=== PATIENT | male | born 1945 | race Caucasian/White ===

== ENCOUNTER 2018-07-15 10:13 | Day surgery (SDC) | payer MEDICARE, BC ==
[2018-07-15] MEDS ORDERED: PROPOFOL 10 MG/ML VIAL IV ONE (10:14)
[2018-07-15] MEDS ORDERED: LIDOCAINE 2% MDV (20MG/ML) 20ML VIAL IV ONE (10:14)
[2018-07-15 11:07] LABS: BASO % 0.3 % (0-6); EOS % 1.9 % (0-6); GRAN % 63.7 % (47-80); HEMATOCRIT 48.7 % (42.0-52.0); HEMOGLOBIN 16.5 gm/dl (14.0-18.0); LYMPH % 25.4 % (16-45); MEAN CELL VOLUME 95.3 fl (81-97); MEAN CORPUSCULAR HEMOGLOBIN 32.3 pg (27-33); MEAN CORPUSCULAR HGB CONC 33.9 g/dl (32-36); MEAN PLATELET VOLUME 11.5 fl (7.4-10.4); MONO % 8.7 % (0-9); PLATELET COUNT 204 K/uL (130-400); RED BLOOD COUNT 5.11 M/uL (4.40-5.70); RED CELL DISTRIBUTION WIDTH 14.5 % (11.5-14.5); WHITE BLOOD COUNT W/O DIFF 6.7 K/uL (4.2-12.2)
[2018-07-15 11:26] LABS: ALB/GLOB RATIO 1.5 (1.1-1.8); ALBUMIN 4.6 g/dL (4.0-5.0); ALKALINE PHOSPHATASE 73 U/L (55-149); ALT/SGPT 30 U/L (<41); AST/SGOT 23 U/L (10.0-50.0); BLOOD UREA NITROGEN 21 mg/dL (8-23); CREATININE 1.2 mg/dL (0.7-1.2); EST GLOMERULAR FILTRATION RATE > 60 mL/min; GLUCOSE,RANDOM 136 mg/dL (74-109); TOTAL PROTEIN 7.7 g/dL (6.6-8.7)
--- NOTE | 2018-07-15 19:26 | Operative Note ---
DATE OF PROCEDURE: 07/15/2018 PROCEDURE: CARDIOVERSION. OPERATING PHYSICIAN: JESSICA WADE M.D. PRIMARY CARE PHYSICIAN: DR. RUY ANDERSON INDICATIONS: PERSISTENT ATRIAL FIBRILLATION. PROCEDURE DESCRIPTION: Mr. Byrnes was brought into the Cardioversion Room in a fasting state. Defibrillation pads were applied in the anteroposterior position. Anesthesia was administered. A synchronized direct current of 100 joules of biphasic energy was utilized for cardioverting, which was successful in the first attempt. The patient was hemodynamically stable after cardioversion. IMPRESSION: SUCCESSFUL DIRECT CURRENT SUPPORTED CARDIOVERSION WITH 100 JOULES OF BIPHASIC ENERGY. cc: Dr. Ruy Anderson JOB NUMBER: [id number] MTDD
== END 2018-07-15 13:10 | disposition home or self-care (01) ==
LOC: SUR 10:13
PROVIDERS: ATTEND Internal Medicine
DX: I48.1 Persistent atrial fibrillation (principal); I10 Essential (primary) hypertension; E78.00 Pure hypercholesterolemia, unspecified; M10.9 Gout, unspecified; E11.9 Type 2 diabetes mellitus without complications; Z79.01 Long term (current) use of anticoagulants
CPT/HCPCS: 80053; 85025; 93005